=== PATIENT | male | born 1970 | race African-American/Black ===

== ENCOUNTER 2019-08-10 22:12 | Inpatient (IN) | payer MEDICAID, OTHER ==
[~2019-08-10] VITALS: Ht 185.4 cm; Wt 103.4 kg
[2019-08-10 22:58] LABS: APPEARANCE,URINE Clear (CLEAR); BILIRUBIN,URINE MODERATE (NEGATIVE); BLOOD, URINE Moderate Ery/uL (NEGATIVE); COLOR,URINE Dark (YELLOW); KETONES,URINE 40 (NEGATIVE); LEUKOCYTE ESTERASE ,URINE Negative (NEGATIVE); NITRITE, URINE Negative (NEGATIVE); PH,URINE 5.5 (5.0-8.0); PROTEIN,URINE Trace mg/dl (NEGATIVE); UGLUCOSE Negative (NEGATIVE); UROBILINOGEN,URINE 0.2 EU/dL (0.2)
[2019-08-10] MEDS ORDERED: DICYCLOMINE HCL INJ 20 MG/2 ML AMPUL IM ONE ×2 (23:00→23:04)
[2019-08-10] MEDS ORDERED: IV NS 0.9% 500 ML BAG IV ONE (23:00)
[2019-08-10] MEDS ORDERED: ONDANSETRON HCL/PF 4 MG/2 ML VIAL IVP ONE (23:00)
[2019-08-10] MEDS ORDERED: ONDANSETRON HCL/PF 4 MG/2 ML VIAL ONE (23:05)
[2019-08-10 23:07] LABS: BASOPHILS # (AUTO) 0.1 /CMM (0.0-0.2); MONOCYTES # (AUTO) 0.9 /CMM (0.1-1.30)
[2019-08-10 23:10] LABS: BASOPHILS % (AUTO) 0.8 % (0.0-2.0); EOSINOPHILS % (AUTO) 0.4 % (0.0-6.0); HEMATOCRIT 52 % (39-51); LYMPHOCYTES # (AUTO) 1.7 /CMM (0.8-4.8); LYMPHOCYTES % (AUTO) 12.8 % (20.0-44.0); MEAN CORPUSCULAR HGB CONC 34 g/dl (31.0-36.0); MEAN CORPUSCULAR VOLUME 103 fL (80-96); MONOCYTES % (AUTO) 6.7 % (2.0-12.0); NEUTROPHILS # (AUTO) 10.7 /CMM (1.8-8.9); NEUTROPHILS % (AUTO) 79.3 % (43.0-81.0); PLATELET COUNT (AUTO) 210 /CMM (150-450); RED BLOOD CELL COUNT(AUTO) 5.07 MIL/uL (4.5-6.0); WHITE BLOOD COUNT (AUTO) 13.4 K/uL (4.3-11.0)
[2019-08-10 23:13] LABS: BACTERIA,URINE Few /HPF (None Seen); MUCUS,URINE Few /LPF (None Seen); SQUAMOUS EPITHELIAL CELL,UR Rare /HPF (None Seen); WBC,URINE 0-2 /HPF (0-3)
[2019-08-10 23:18] LABS: CALCIUM, SERUM 9.7 mg/dL (8.5-10.1); CARBON DIOXIDE 28 mmol/L (21-32); CHLORIDE 97 mmol/L (98-107); CREATININE 1.3 mg/dL (0.6-1.3); GLUCOSE 133 mg/dL (74-106); POTASSIUM 3.8 mmol/L (3.5-5.1); SODIUM SERUM 135 mmol/L (136-145); UREA NITROGEN, BLOOD 9 mg/dL (7-18)
--- NOTE | 2019-08-10 23:20 | NUR ---
ABD CRAMPS X 2WEEKS, WORSE LAST 5 DAYS, TAKEN OTC NO RELIEF (PEPTO,PEPCID,TUMS). PT AAOX4, VSS, RR EVEN & UNLABORED. DENIES CP, SOB, DIZZINESS, N/V/D @ THIS TIME. PT SEEN & EVAL'D BY DR. YEUNG. MEDICATED ORDERED, PT JYOTI WELL. WILL CONT TO MONITOR.
[2019-08-10 23:24] LABS: ALANINE AMINOTRANSFERASE 453 U/L (12-78); ALBUMIN 3.8 g/dL (3.4-5.0); ALKALINE PHOSPHATASE 159 U/L (46-116); ASPARTATE AMINOTRANSFERASE 333 U/L (15-37); BILIRUBIN,DIRECT 0.4 mg/dL (0.0-0.2); BILIRUBIN,TOTAL 1.3 mg/dL (0.2-1.0); LIPASE 842 U/L (73-393); TOTAL PROTEIN, SERUM 7.9 g/dL (6.4-8.2)
--- NOTE | 2019-08-10 23:52 | NUR ---
M/S 312-2
[2019-08-10 23:58] LABS: LYMPHOCYTES % (MANUAL) 8 % (16-48); MONOCYTES % (MANUAL) 4 % (0-11.0); NEUTROPHILS % (MANUAL) 88 (42-76)
--- NOTE | 2019-08-10 23:59 | NUR ---
REPORT CALLED TO M/S 312-2. PENDING [facility] ADMISSION.
[2019-08-11] MEDS ORDERED: MORPHINE SULFATE INJ 2 MG/ML DISP.SYRIN IV ONE
--- NOTE | 2019-08-11 00:17 | NUR ---
ER TALKING TO JASPAL HOOVER REGARDING PT ADMISSION.
[2019-08-11] MEDS ORDERED: MORPHINE SULFATE INJ 2 MG/ML DISP.SYRIN IV PRN ×2 (00:30→04:30)
[2019-08-11] MEDS ORDERED: hydrALAZINE HCL IV 20 MG VIAL IV PRN ×2 (00:30→01:00)
[2019-08-11] MEDS ORDERED: ONDANSETRON HCL/PF 4 MG/2 ML VIAL IVP PRN (00:30)
[2019-08-11] MEDS ORDERED: hydrALAZINE HCL IV 20 MG VIAL ONE ×2 (00:44→01:37)
[2019-08-11] MEDS ORDERED: MORPHINE SULFATE INJ 4 MG/ML DISP.SYRIN ONE (00:44)
--- NOTE | 2019-08-11 00:45 | NUR ---
ER MADE AWARE OF BP 187/116 WITH ORDERS RECEIVED. WILL CARRY OUT ORDERS.
--- NOTE | 2019-08-11 00:55 | NUR ---
PT MEDICATED ORDERED. WILL CONTINUE TO MONITOR PT CLOSELY.
[2019-08-11] MEDS ORDERED: hydrALAZINE HCL IV 20 MG VIAL IV STA (01:35)
--- NOTE | 2019-08-11 01:35 | NUR ---
BP 181/111 ER MD MADE AWARE WITH ORDERS RECEIVED. WILL CARRY OUT ORDERS.
--- NOTE | 2019-08-11 02:45 | NUR ---
PT ASLEEP, NO ACUTE DISTRESS NOTED, RESP EVEN AND UNLABORED. CALL LIGHTNWIIN REACH. WILL CONTINUE TO MONITOR PT.
--- NOTE | 2019-08-11 03:21 | NUR ---
PT TRANSPORTED TO [place].
--- NOTE | 2019-08-11 03:30 | NUR ---
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 ALERT X3, ABLE TO VERBALIZE NEEDS. MD STORM ADMITTING ORDER WITH ACUTE PANCREATITIS. PATIENT REPORTED HE DROVE HIS CAR WHITE COLORED CHEV[place] VAN PATIENT REPORTED PAIN IS LOW. LAST PAIN MEDICATION RECEIVED AT ER. BELONGINGS CHECK, ID BAND PROVIDED, ON NPOS STATUS. VITAL WILL MONITOR.MIKE OF THE CAR WITH SUNG
[2019-08-11 03:53] VITALS: BP 153/103
[2019-08-11] MEDS: IV NS 0.9% 1,000 ML IV PRN ×2 (04:05→20:54)
[2019-08-11] MEDS ORDERED: METRONIDAZOLE 500MG/ NS 100ML 100 ML IV ONE (04:23)
[2019-08-11] MEDS: METRONIDAZOLE 500MG/ NS 100ML 500 MG in PREMIX 1 EA IV SCH ×4 (04:25→20:41)
--- NOTE | 2019-08-11 04:36 | NUR ---
MS/RN NOTES IV FLAGYL WAS ADMINISTERED AT 0430, FOR THE FIRST DOSE PATIENT WAS BROUGHT FROM THE ER AFTER 330 AM. TO ADJUST ANTIBIOTIC ACCORDINGLY.
--- NOTE | 2019-08-11 06:41 | NUR ---
MS/RN CLOSING NOTES PATIENT ABLE TO SLEEP AND REST COMFORTABLY. DENIES PAIN. ON NPO STATUS DUE TO DIVERTICULITIS, ALERT, ORIENTED X3. ABLE TO VERBALIZE NEEDS, BELONGINGS WITHIN REACH, BED LOCKED, CALL LIGHTS WITHIN REACH. NO SIGNS OF DISTRESS OR DISCOMFORT. ATTENDED TO ALL NEEDS, INSTRUCT TO USE CALL LIGHTS FOR ASSISTANCE, PATIENT VERBALIZED UNDERSTANDING. WILL ENDORSE TO AM RN FOR CHLOE.
--- NOTE | 2019-08-11 07:10 | NUR ---
MS RN NOTES PATIENT IN BED ALERT ORIENTED X 4. NO ACUTE DISTRESS NOTED. BREATHING UNLABORED. NO SOB NOTED. IV ACCESS PATENT AND INTACT, NO REDNESS, NO SWELLING NOTED. SAFETY MEASURES IN PLACE. CALL LIGHT WITHIN REACH. WILL CONTINUE TO MONITOR ACCORDINGLY.
[2019-08-11 08:00] VITALS: BP 155/91
[2019-08-11 08:21] LABS: BASOPHILS # (AUTO) 0.1 /CMM (0.0-0.2); BASOPHILS % (AUTO) 0.5 % (0.0-2.0); EOSINOPHILS % (AUTO) 0.5 % (0.0-6.0); HEMATOCRIT 55 % (39-51); HEMOGLOBIN 18.6 g/dL (13.5-17.5); LYMPHOCYTES # (AUTO) 1.9 /CMM (0.8-4.8); LYMPHOCYTES % (AUTO) 15.9 % (20.0-44.0); MEAN CORPUSCULAR HGB CONC 34 g/dl (31.0-36.0); MEAN CORPUSCULAR VOLUME 102 fL (80-96); MONOCYTES % (AUTO) 8.4 % (2.0-12.0); NEUTROPHILS # (AUTO) 8.9 /CMM (1.8-8.9); NEUTROPHILS % (AUTO) 74.7 % (43.0-81.0); PLATELET COUNT (AUTO) 184 /CMM (150-450); RED BLOOD CELL COUNT(AUTO) 5.33 MIL/uL (4.5-6.0)
[2019-08-11] MEDS: PANTOPRAZOLE 40 MG VIAL IV SCH (08:42)
[2019-08-11 08:45] LABS: ALBUMIN 3.6 g/dL (3.4-5.0); BILIRUBIN,TOTAL 1.4 mg/dL (0.2-1.0); CALCIUM, SERUM 9.4 mg/dL (8.5-10.1); MAGNESIUM 1.7 mg/dL (1.8-2.4); PHOSPHORUS 3.2 mg/dL (2.5-4.9); POTASSIUM 3.4 mmol/L (3.5-5.1); TOTAL PROTEIN, SERUM 7.6 g/dL (6.4-8.2)
[2019-08-11 08:46] LABS: THYROID STIMULATING HORMONE 1.774 uIU/mL (0.358-3.74)
[2019-08-11] MEDS ORDERED: FAMO-131 PO (09:12)
[2019-08-11] MEDS ORDERED: CALC500T13 PO (09:12)
[2019-08-11] MEDS ORDERED: BISM262O64 PO (09:12)
[2019-08-11] MEDS: Magnesium 1GM/D5W 100ML PREMIX 100 ML IV SCH ×2 (10:10→11:18)
[2019-08-11] MEDS: POTASSIUM CL. PREMIX PERIPHER. 50 ML IV SCH ×2 (12:35→17:19)
[2019-08-11 16:00] VITALS: BP 158/117
--- NOTE | 2019-08-11 16:21 | NUR ---
MS BAILEY NOTES RECHECKED BLOOD PRESSURE NOTED 165/100 87 , GAVE APRESOLINE IV ORDERED, PLACED ON ENERGY CONSERVATION DIRECTOR SINUS RHYTHM HR 89, WILL CONTINUE TO MONITOR PATIENT. Addendum: 08/11/19 at 1918 by MICHAEL LAY RN DISREGARD ABOVE NOTE MS BAILEY NOTES RECHECKED BLOOD PRESSURE NOTED 165/100 HR 87 , GAVE APRESOLINE IV ORDERED, PLACED ON ENERGY CONSERVATION DIRECTOR SINUS RHYTHM HR 87, WILL CONTINUE TO MONITOR PATIENT.
[2019-08-11] MEDS: AMLODIPINE BESYLATE 5 MG TABLET PO SCH (18:00)
--- NOTE | 2019-08-11 18:53 | NUR ---
MS RN NOTES PATIENT IN BED ALERT ORIENTED X 4. NO ACUTE DISTRESS NOTED. BREATHING UNLABORED. NO SOB NOTED. IV ACCESS PATENT AND INTACT, NO REDNESS, NO SWELLING NOTED. NEEDS ATTENDED AND ANTICIPATED. KEPT COMFORTABLE. SAFETY MEASURES IN PLACE. CALL LIGHT WITHIN REACH. BLOOD PRESSURE RECHECKED AT 142/96 HR 89, SINUS RHYTHM ON OUTPATIENT FACILITY PHYSICAL THERAPIST. WILL ENDORSE TO NIGHT NURSE FOR CONTINUITY OF CARE.
--- NOTE | 2019-08-11 19:26 | NUR ---
MS RN OPENING NOTES PATIENT RECEIVED RESTING IN BED A/O X4. STABLE ON RA WITH BREATHING EVEN AND UNLABORED, NO SOB NOTED. NO SIGNS OF ACUTE DISTRESS. NO COMPLAINTS OF PAIN OR DISCOMFORT. IV LOCATED ON L AC #20 RUNNING NS @ 125 ML/ HR. PATIENT REMAINING NPO. SAFETY PRECAUTIONS IN PLACE WITH BED IN LOWEST POSITION, CALL LIGHT WITHIN REACH, BREAKS ON, SIDE RAILS UP. WILL CONTINUE TO MONITOR THROUGHOUT THE NIGHT.
[2019-08-11 20:00] VITALS: BP 152/97
--- NOTE | 2019-08-11 20:32 | NUR ---
MS RN NOTES TALKED TO SECURITY ABOUT PATIENT'S CAR PARKED AT ER. SAID IT WILL BE OKAY AND THEY WILL LEAVE A NOTE.
[2019-08-12] MEDS: METRONIDAZOLE 500MG/ NS 100ML 500 MG in PREMIX 1 EA IV SCH ×2 (04:07→12:49)
--- NOTE | 2019-08-12 06:22 | NUR ---
MS RN NOTES FOLLOWED UP WITH PT DIET, PER AUTOMATIC MAINTAINER DOTTY- REMAIN NPO
[2019-08-12] MEDS: IV NS 0.9% 1,000 ML IV PRN (06:31)
--- NOTE | 2019-08-12 06:42 | NUR ---
MS RN CLOSING NOTES PATIENT RESTING IN BED A/O X4. STABLE ON RA WITH BREATHING EVEN AND UNLABORED, NO SOB NOTED. NO SIGNS OF ACUTE DISTRESS. NO COMPLAINTS OF PAIN OR DISCOMFORT. IV LOCATED ON L AC #20 RUNNING NS @ 125 ML/ HR. PATIENT REMAINED NPO. SAFETY PRECAUTIONS IN PLACE WITH BED IN LOWEST POSITION, CALL LIGHT WITHIN REACH, BREAKS ON, SIDE RAILS UP. ALL NEEDS ATTENDED TO. WILL ENDORSE TO ONCOMING SHIFT ABOUT CHLOE.
[2019-08-12 06:48] LABS: BASOPHILS # (AUTO) 0.1 /CMM (0.0-0.2); BASOPHILS % (AUTO) 0.5 % (0.0-2.0); EOSINOPHILS % (AUTO) 0.9 % (0.0-6.0); HEMATOCRIT 47 % (39-51); HEMOGLOBIN 16.1 g/dL (13.5-17.5); LYMPHOCYTES # (AUTO) 1.7 /CMM (0.8-4.8); MEAN CORPUSCULAR HGB CONC 34 g/dl (31.0-36.0); MEAN CORPUSCULAR VOLUME 103 fL (80-96); MONOCYTES % (AUTO) 8.5 % (2.0-12.0); NEUTROPHILS # (AUTO) 8.4 /CMM (1.8-8.9); NEUTROPHILS % (AUTO) 75.1 % (43.0-81.0); PLATELET COUNT (AUTO) 170 /CMM (150-450); RED BLOOD CELL COUNT(AUTO) 4.55 MIL/uL (4.5-6.0); WHITE BLOOD COUNT (AUTO) 11.2 K/uL (4.3-11.0)
[2019-08-12 07:02] LABS: CALCIUM, SERUM 8.5 mg/dL (8.5-10.1); CREATININE 0.9 mg/dL (0.6-1.3); MAGNESIUM 1.9 mg/dL (1.8-2.4); POTASSIUM 3.9 mmol/L (3.5-5.1)
[2019-08-12] MEDS: PANTOPRAZOLE 40 MG VIAL IV SCH (08:34)
[2019-08-12 09:00] VITALS: BP 139/92
[2019-08-12] MEDS: AMLODIPINE BESYLATE 5 MG TABLET PO SCH (09:00)
[2019-08-12 09:08] LABS: ALBUMIN 2.9 g/dL (3.4-5.0); BILIRUBIN,DIRECT 0.4 mg/dL (0.0-0.2); BILIRUBIN,TOTAL 1.4 mg/dL (0.2-1.0); TOTAL PROTEIN, SERUM 6.7 g/dL (6.4-8.2)
--- NOTE | 2019-08-12 12:11 | NUR ---
MS RN NOTES RECEIVED NEW ORDER FROM DR ALONSO JOYNER TO START REGULAR DIET AND PATIENT MAY GO HOME IF PATIENT TOLERATED DIET WELL. ORDERS CLARIFIED AND READ BACK, NOTED AND CARRIED OUT.
--- NOTE | 2019-08-12 13:00 | NUR ---
MS RN NOTES PATIENT ATE LUNCH TOLERATED CURRENT DIET WELL.
--- NOTE | 2019-08-12 16:45 | NUR ---
MS UI APPLICATION DEVELOPER NOTES PATIENT HOME WITH STABLE VITAL SIGNS. ALERT ORIENTED X 4. NO ACUTE DISTRESS NOTED. BREATHING UNLABORED. NO SOB NOTED.DENIED ANY PAIN. NO VOMITING NOTED. IV ACCESS REMOVED, NO BLEEDING, NO REDNESS, NO SWELLING NOTED. DISCHARGE INSTRUCTIONS GIVEN TO THE PATIENT , VERBALIZED UNDERSTANDING. ALL BELONGINGS ACCOUNTED FOR. PATIENT AMBULATORY WITH STEADY GAIT. ASSISTED TO LOBBY, LEFT VIA PRIVATE CAR IN STABLE CONDITION.
== END 2019-08-12 16:45 | disposition home or self-care (01) | DRG 282 ==
LOC: ER 22:22 → MED 08-11 00:07
PROVIDERS: ADMIT Internal Medicine; ATTEND Internal Medicine
DX: K85.20 Alcohol induced acute pancreatitis without necrosis or infection (principal); E87.1 Hypo-osmolality and hyponatremia; K29.80 Duodenitis without bleeding; E66.9 Obesity, unspecified; R74.0 Nonspecific elevation of levels of transaminase and lactic acid dehydrogenase [LDH]; Z68.30 Body mass index [BMI] 30.0-30.9, adult; I16.0 Hypertensive urgency; F10.10 Alcohol abuse, uncomplicated; Y90.9 Presence of alcohol in blood, level not specified
CPT/HCPCS: 36415; 71045-TC; 76705-TC; 80048-TC; 80053-TC; 80061-TC; 80076-TC; 81000-TC; 83690-TC; 83735-TC; 84100-TC; 84443-TC; 84484-TC; 85025-TC; 85730-TC; 87081-TC; A4216; C9113; G0378; J0360; J0500; J2270; J2405; J3475; J3480; J7030; J7040